=== PATIENT | female | born 1995 | race American Indian/Alaskan Native ===

== ENCOUNTER 2017-03-01 16:14 | Emergency (ER) | payer MEDICAID, OTHER ==
[2017-03-01 16:19] VITALS: BMI 26.4
[2017-03-01 16:33] VITALS: RESP 18; TEMP 98.8
--- NOTE | 2017-03-01 16:35 | ED PDOC ---
Arrival/HPI - General Historian: Patient - History of Present Illness Time/Duration: > week Symptom Onset: Gradual Symptom Course: Worsening Quality: Burning Severity Level: Mild - General Chief Complaint: Female Genitourinary Time Seen by Provider: 03/01/17 16:20 - History of Present Illness Narrative History of Present Illness (Text): 03/01/17 16:33 22-year-old female presents today with a 5-6 day history of dysuria or urinary frequency and suprapubic pressure. Patient states she was seen by her primary care physician about 5 days ago and was started on antibiotics for urinary tract infection. Patient states over the past few days his symptoms have not improved. Patient states she is urinating more frequently and is having continued dysuria. She denies chest pain or shortness of breath. Denies fevers or chills. Denies flank pain. Denies nausea vomiting diarrhea or constipation. No other complaints (Azoia,Thuy T) Past Medical History - Provider Review Nursing Documentation Reviewed: Yes - Travel History Have you recently traveled outside [place] w/in the past 3 mons?: No - Infectious Disease Hx of Infectious Diseases: None - Tetanus Immunization Tetanus Immunization: Unknown - Cardiac Hx Cardiac Disorders: No - Pulmonary Hx Respiratory Disorders: No - Neurological Hx Neurological Disorder: No - HEENT Hx HEENT Disorder: No - Renal Hx Renal Disorder: No - Endocrine/Metabolic Hx Endocrine Disorders: No - Hematological/Oncological Hx Blood Disorders: No - Integumentary Hx Dermatological Disorder: No - Musculoskeletal/Rheumatological Hx Musculoskeletal Disorders: No Hx Falls: No - Gastrointestinal Hx Gastrointestinal Disorders: No - Genitourinary/Gynecological Hx Genitourinary Disorders: No - Psychiatric Hx Psychophysiologic Disorder: No Hx Substance Use: No - Surgical History Other/Comment: R collar bone sx. L knee sx - Anesthesia Hx Anesthesia: Yes Hx Anesthesia Reactions: No Hx Malignant Hyperthermia: No Family/Social History - Physician Review Nursing Documentation Reviewed: Yes Family/Social History: Unknown Family HX Smoking Status: Light Smoker < 10 Cigarettes Daily Hx Alcohol Use: No Hx Substance Use: No Allergies/Home Meds Allergies/Adverse Reactions: Allergies peanut butter Allergy (Uncoded 12/16/15 00:39) SWELLING Review of Systems - Review of Systems Constitutional: absent: Fatigue, Fevers Respiratory: absent: SOB, Cough Cardiovascular: absent: Chest Pain, Palpitations Gastrointestinal: Abdominal Pain (suprapubic pressure with urination). absent: Constipation, Diarrhea, Nausea, Vomiting Genitourinary Female: Dysuria, Frequency. absent: Hematuria, Vaginal Bleeding, Vaginal Discharge Musculoskeletal: absent: Arthralgias, Back Pain, Neck Pain Skin: absent: Rash, Pruritis Neurological: absent: Headache, Dizziness Psychiatric: absent: Anxiety, Depression Physical Exam Vital Signs Reviewed: Yes Temperature: Afebrile Blood Pressure: Normal Pulse: Regular Respiratory Rate: Normal Appearance: Positive for: Well-Appearing, Non-Toxic, Comfortable Pain Distress: None Mental Status: Positive for: Alert and Oriented X 3 - Systems Exam Head: Present: Atraumatic Mouth: Present: Moist Mucous Membranes Neck: Present: Normal Range of Motion Respiratory/Chest: Present: Clear to Auscultation, Good Air Exchange. No: Respiratory Distress, Accessory Muscle Use Cardiovascular: Present: Regular Rate and Rhythm, Normal S1, S2. No: Murmurs Abdomen: Present: Normal Bowel Sounds. No: Tenderness, Distention, Peritoneal Signs, Rebound, Guarding Genitourinary/Pelvic Exam: Present: Normal External Genitalia, Vaginal Discharge (white), Cervical Motion Tendernes (minimal), Cervical os Closed, Other (chaparoned by stevie). No: Vaginal Bleeding, Vaginal Lesions, Adenexal Tenderness, Adenexal Mass, Odor Back: Present: Normal Inspection. No: CVA Tenderness, Midline Tenderness, Paraspinal Tenderness Upper Extremity: Present: Normal ROM Lower Extremity: Present: Normal ROM Neurological: Present: GCS=15, Speech Normal, Gait Normal Skin: Present: Warm, Dry, Normal Color. No: Rashes Psychiatric: Present: Alert, Oriented x 3 Vital Signs Temp Pulse Resp BP Pulse Ox 03/01/17 16:20 98.8 F 93 H 18 100/59 L 99 Medical Decision Making ED Course and Treatment: 03/01/17 16:37 Patient is nontoxic well-appearing in no distress with stable vital signs abdomen soft non tender; non distended. HCG; negative Urinalysis: no leukocytes, + moderate bacteria. Urine culture: pending pt with white vaginal discharge. recently treated with flagyl; will send gc/ chlamydia. rocephin and zithromax given. advised follow up with the primary care physician within the next 2 days. advised immediate return if symptoms worsen,persist or if new symptoms develop. Impression: dysuria, vaginal discharge macrobid 1 tablet twice daily x 10 days increase fluids follow up with the primary care physician within the next 2 days follow up with the [facility] within the next 2 days. return immediately if symptoms worsen,persist or if new symptoms develop. (Thuy Beyer) I was available for consultation during PA evaluation. The chart was reviewed by me, and I agree with disposition. The documented history was done by the physician production engineer track. The documented physical exam was done by the physician production engineer track. The documented procedures were done by the physician production engineer track. (Prieto Sharp) - Lab Interpretations Lab Results: Lab Results 03/01/17 16:30: Urine Color Yellow, Urine Appearance Clear, Urine pH 7.0, Ur Specific [place] 1.020, Urine Protein Trace H, Urine Glucose (UA) Negative, Urine Ketones 15 H, Urine Blood Negative, Urine Nitrate Negative, Urine Bilirubin Negative, Urine Urobilinogen 1.0 H, Ur Leukocyte Esterase Negative, Urine RBC 2 - 5, Urine WBC 0 - 2, Ur Epithelial Cells 10 - 12, Urine Bacteria Mod - Medication Orders Current Medication Orders: Discontinued Medications Azithromycin (Zithromax) 1,000 mg PO STAT STA PRN Reason: Protocol Stop: 03/01/17 17:39 Ceftriaxone Sodium (Rocephin) 250 mg IM STAT STA PRN Reason: Protocol Stop: 03/01/17 17:39 Disposition/Present on Arrival - Present on Arrival Any Indicators Present on Arrival: No History of DVT/PE: No History of Uncontrolled Diabetes: No Urinary Catheter: No History of Decub. Ulcer: No History Surgical Site Infection Following: None - Disposition Have Diagnosis and Disposition been Completed?: Yes Disposition Time: 17:27 Patient Plan: Discharge - Disposition Diagnosis: Dysuria, Vaginal discharge Disposition: HOME/ ROUTINE Condition: GOOD Discharge Instructions (ExitCare): Urinary Tract Infection in Women (ED), Vaginal Discharge (ED) Additional Instructions: macrobid 1 tablet twice daily x 10 days increase fluids follow up with the primary care physician within the next 2 days follow up with the [facility] within the next 2 days. return immediately if symptoms worsen,persist or if new symptoms develop. Prescriptions: Nitrofurantoin Macrocrystals [Macrobid] 100 mg PO BID #20 cap [facility] - Follow up with primary Yobani Ridley [Primary Care Provider] - Follow up with primary Danielle Poole MD [Staff Provider] - Follow up with primary Forms: [employer] (Hebrew), WORK NOTE
[2017-03-01 16:45] LABS: URINE BILIRUBIN NEGATIVE (NEGATIVE); URINE BLOOD NEGATIVE (NEGATIVE); URINE GLUCOSE (UA) NEGATIVE (NEGATIVE); URINE KETONE 15 mg/dL (NEGATIVE); URINE LEUKOCYTE ESTERASE NEGATIVE Leu/uL (NEGATIVE); URINE PROTEIN TRACE mg/dL (<30 mg/dL)
[2017-03-01 16:46] LABS: URINE APPEARANCE CLEAR (CLEAR); URINE COLOR YELLOW (YELLOW)
[2017-03-01 17:17] LABS: URINE WBC 0 - 2 /hpf (0-6)
[2017-03-01 17:18] LABS: URINE BACTERIA MOD (NEG)
[2017-03-01] MEDS ORDERED: cefTRIAXone (Rocephin) 250 mg Inj IM STA (17:38)
[2017-03-01 18:15] VITALS: BP 110/78; PULSE 89; O2SAT 100
[2017-03-01] MEDS ORDERED: Lidocaine 1% Inj (20ml) ONE (18:20)
== END 2017-03-01 18:15 | disposition home or self-care (01) ==
LOC: ED 16:14
DX: R30.0 Dysuria (principal); N89.8 Other specified noninflammatory disorders of vagina
CPT/HCPCS: 81001; 87086; 87491; 87591; 96372; 99284; J0696